=== PATIENT | female | born 1950 | race American Indian/Alaskan Native ===

== ENCOUNTER 2017-04-03 07:30 | Outpatient (CLI) | payer MEDICARE ==
--- NOTE | 2017-04-03 08:15 | Mammography Report ---
Bilateral mammogram: Compared to 02/22/16 and 10/20/16. CAD utilized. Findings: Predominance of adipose tissue bilaterally. No distinct mass or microcalcification. Benign density left breast without interval change. Benign calcifications. Benign axillary nodes. Impression: Benign findings. Annual followup recommended. BI-RADS CATEGORY: 2 = Benign ACR BI-RADS MAMMOGRAPHIC CODES: 0 = Needs additional imaging evaluation; 1 = Negative; 2 = Benign; 3 = Probably benign; 4 = Suspicious; 5 = Malignant; 6 = Known biopsy-proven malignancy COMMENT: 1. Dense breast tissue, i.e., adenosis, fibrocystic changes, etc., may obscure an underlying neoplasm. 2. Approximately 10% of cancers are not detected with mammography. 3. A negative mammography report should not delay biopsy if a clinically suspicious mass is present. COMMENT: Patient follow-up letters are generated in [employer].
== END 2017-04-03 07:31 | disposition home or self-care (01) ==
LOC: MAMMO 07:30
PROVIDERS: ATTEND Obstetrics & Gynecology Gynecology
DX: Z12.31 Encounter for screening mammogram for malignant neoplasm of breast (principal)
CPT/HCPCS: 77067; G0202

== ENCOUNTER 2018-01-07 12:42 | Emergency (ER) | payer MEDICARE ==
[2018-01-07] MEDS ORDERED: NACL 0.9% 1000 ML 1,000 ML IV ONE ×2 (13:06→15:20)
[2018-01-07] MEDS ORDERED: ZOFRAN IV ONE (13:06)
--- NOTE | 2018-01-07 13:11 | Emergency Department Report ---
ED Abdominal Pain HPI - General Chief Complaint: Dizziness Stated Complaint: DIZZY Time Seen by Provider: 01/07/18 13:00 Source: patient Mode of arrival: Ambulatory Limitations: No Limitations - History of Present Illness Initial Comments: Patient is 67 his old female history of hypertension and diabetes. Patient stated that she recently flew from [place] to [place]. She stated that she started having nausea vomiting and watery diarrhea associated with this dizziness and diaphoresis. Patient stated that she did have murmur in the airport and she thinks this is most likely the reason for her symptoms. She also stated that she is having runny nose but no cough. Patient denied any fever, neck pain or neck stiffness. In triage patient found to have a blood pressure of 90/66. MD Complaint: abdominal pain -: Gradual Location: diffuse Radiation: none Migration to: no migration Severity: mild Severity scale (0 -10): 3 Quality: cramping Context: possible food poisoning Associated Symptoms: nausea, vomiting, diarrhea - Related Data Previous Rx's Medication Instructions Recorded Last Taken Type Ondansetron [Zofran Odt] 4 mg PO Q8HR PRN #14 tab.rapdis 01/07/18 Unknown Rx Allergies Allergy/AdvReac Type Severity Reaction Status Date / Time No Known Allergies Allergy Unverified 02/01/15 10:00 ED Review of Systems ROS: Stated complaint: DIZZY Other details as noted in HPI Comment: All other systems reviewed and negative Constitutional: denies: chills, fever Respiratory: denies: cough, orthopnea, shortness of breath, SOB with exertion, SOB at rest, stridor, wheezing Cardiovascular: denies: chest pain, palpitations, dyspnea on exertion Gastrointestinal: abdominal pain, nausea, vomiting, diarrhea Neurological: denies: headache, weakness, numbness, paresthesias, confusion, abnormal gait ED Past Medical Hx - Past Medical History Previous Medical History?: Yes Hx Hypertension: Yes Hx Diabetes: Yes Additional medical history: high cholesterol - Surgical History Past Surgical History?: Yes Additional Surgical History: Gastric bypass 2004, [place] Carpel tunnel surgery , Left knee arthroscopy, Hysterectomy - Social History Smoking Status: Never Smoker Substance Use Type: Alcohol, Prescribed - Medications Home Medications: Home Medications Medication Instructions Recorded Confirmed Last Taken Type Ondansetron [Zofran Odt] 4 mg PO Q8HR PRN #14 tab.rapdis 01/07/18 Unknown Rx ED Physical Exam - General Limitations: No Limitations General appearance: alert, in no apparent distress - Head Head exam: Present: atraumatic, normocephalic, normal inspection - Eye Eye exam: Present: normal appearance - ENT ENT exam: Present: normal exam, normal orophraynx, mucous membranes moist - Neck Neck exam: Present: normal inspection, full ROM. Absent: tenderness, meningismus, lymphadenopathy, thyromegaly - Respiratory Respiratory exam: Present: normal lung sounds bilaterally. Absent: respiratory distress, wheezes, rales, rhonchi, stridor, chest wall tenderness, accessory muscle use, decreased breath sounds, prolonged expiratory - Cardiovascular Cardiovascular Exam: Present: regular rate, normal rhythm, normal heart sounds - GI/Abdominal GI/Abdominal exam: Present: soft, normal bowel sounds. Absent: distended, tenderness, guarding, rebound, rigid, organomegaly, mass, bruit, pulsatile mass - Extremities Exam Extremities exam: Present: normal inspection, full ROM, normal capillary refill. Absent: tenderness, pedal edema, joint swelling, calf tenderness - Back Exam Back exam: Present: normal inspection, full ROM. Absent: tenderness, CVA tenderness (R), CVA tenderness (L), muscle spasm, paraspinal tenderness, vertebral tenderness - Neurological Exam Neurological exam: Present: alert, oriented X3, CN II-XII intact, normal gait - Skin Skin exam: Present: warm, intact, normal color ED Course Vital Signs 01/07/18 12:51 Temperature 97 F L Pulse Rate 98 H Respiratory 20 Rate Blood Pressure 91/60 O2 Sat by Pulse 99 Oximetry ED Medical Decision Making - Lab Data Result diagrams: 01/07/18 13:20 01/07/18 13:21 - Radiology Data Radiology results: report reviewed Referring Physician: BARBARA MOON Patient Name: BRENNA WATTS Date of : 1950 Sex: Female Report Date: 2018-01-07 Report Status: Finalized Findings [facility] [address] [place] [address] Cat Scan Report Signed Patient: BRENNA WATTS MR#: [id number] : 1950 Acct:[id number] Age/Sex: 67 / F ADM Date: 01/07/18 Loc: ED Attending Dr: Ordering Physician: BARBARA MOON Date of Service: 01/07/18 Procedure(s): CT head/brain wo con Accession Number(s): [id number] cc: BARBARA MOON FINAL REPORT EXAM: CT HEAD/BRAIN WO CON HISTORY: dizziness TECHNIQUE: CT of the head was performed. No intravenous contrast was administered. PRIORS: None. FINDINGS: There is no evidence of intracranial hemorrhage. There is no edema, mass effect or midline shift. There are no abnormal extra-axial fluid collections. The ventricles are appropriate for brain volume. There is no skull fracture seen. The visualized aspects of the sinuses are clear. IMPRESSION: There is no acute intracranial abnormality identified. Transcribed By: KM Dictated By: AMRITA OLSEN MD Electronically Authenticated By: AMRITA OLSEN MD Signed Date/Time: 01/07/18 1505 DD/ 1505 TD/TT: 01/07/18 1505 Critical care attestation.: If time is entered above; I have spent that time in minutes in the direct care of this critically ill patient, excluding procedure time. ED Disposition Clinical Impression: Dizziness, Dehydration, Gastroenteritis Disposition: DC-01 TO HOME OR SELFCARE Is pt being admited?: No Condition: Stable Instructions: Gastroenteritis (ED), Dizziness (ED) Prescriptions: Ondansetron [Zofran Odt] 4 mg PO Q8HR PRN #14 tab.rapdis PRN Reason: Nausea And Vomiting Referrals: MEJIA VERNON MD [Primary Care Provider] - 3-5 Days
[2018-01-07 13:37] LABS: Basophils % (Auto) 0.4 % (0.0-1.8); Eosinophils # (Auto) 0.2 K/mm3 (0.0-0.4); Eosinophils % (Auto) 3.1 % (0.0-4.3); Hematocrit 43.3 % (30.3-42.9); Hemoglobin 15.1 gm/dl (10.1-14.3); Lymphocytes # (Auto) 0.5 K/mm3 (1.2-5.4); Mean Corpuscular HGB Conc 35 % (30-34); Mean Corpuscular Hemoglobin 32 pg (28-32); Mean Corpuscular Volume 93 fl (79-97); Monocytes # (Auto) 0.3 K/mm3 (0.0-0.8); Monocytes % (Auto) 5.1 % (0.0-7.3); Platelet Count 187 K/mm3 (140-440); Red Blood Count 4.64 M/mm3 (3.65-5.03)
[2018-01-07 13:56] LABS: Alanine Aminotransferase 21 units/L (7-56); Albumin 3.9 g/dL (3.9-5); BUN/Creatinine Ratio 18; Blood Urea Nitrogen 16 mg/dL (7-17); Calcium 8.7 mg/dL (8.4-10.2); Hemolysis Index 7
--- NOTE | 2018-01-07 15:10 | Cat Scan Report ---
FINAL REPORT EXAM: CT HEAD/BRAIN WO CON HISTORY: dizziness TECHNIQUE: CT of the head was performed. No intravenous contrast was administered. PRIORS: None. FINDINGS: There is no evidence of intracranial hemorrhage. There is no edema, mass effect or midline shift. There are no abnormal extra-axial fluid collections. The ventricles are appropriate for brain volume. There is no skull fracture seen. The visualized aspects of the sinuses are clear. IMPRESSION: There is no acute intracranial abnormality identified.
[2018-01-07 16:17] VITALS: BP 118/68
== END 2018-01-07 16:22 | disposition home or self-care (01) ==
LOC: ED 12:42
DX: E86.0 Dehydration (principal); K52.9 Noninfective gastroenteritis and colitis, unspecified; I10 Essential (primary) hypertension; E11.9 Type 2 diabetes mellitus without complications; E78.00 Pure hypercholesterolemia, unspecified; Z90.710 Acquired absence of both cervix and uterus
CPT/HCPCS: 36415; 70450; 80053; 84484; 85025; 93005; 93010; 96361; 96374; 99284; J2405; J7030

== ENCOUNTER 2020-09-06 15:07 | Emergency (ER) | payer MEDICARE ==
--- NOTE | 2020-09-06 15:18 | Event Note ---
ED Screening Note Date of service: 09/06/20 Time: 15:17 ED Screening Note: Pt complains of weakness, left flank pain, and body aches x 4 days hx of DM and HTN Denies cough, SOB, or CP No N/V/D This initial assessment/diagnostic orders/clinical plan/treatment(s) is/are subject to change based on patients health status, clinical progression and re- assessment by fellow clinical providers in the ED. Further treatment and workup at subsequent clinical providers discretion. Patient/guardian urged not to elope from the ED as their condition may be serious if not clinically assessed and managed. Initial orders include: labs CXR
--- NOTE | 2020-09-06 15:47 | XRay Report ---
CHEST 2 VIEWS INDICATION / CLINICAL INFORMATION: left posterior chest pain. COMPARISON: January 2012 FINDINGS: SUPPORT DEVICES: None. HEART / MEDIASTINUM: No significant abnormality. LUNGS / PLEURA: No significant pulmonary or pleural abnormality. No pneumothorax. ADDITIONAL FINDINGS: No significant additional findings. IMPRESSION: 1. No acute findings. Signer Name: Max Shearer MD Signed: 09/06/2020 3:43 PM Workstation Name: [id number]
[2020-09-06 16:41] LABS: Basophils % (Auto) 0.3 % (0.0-1.8); Eosinophils % (Auto) 0.3 % (0.0-4.3); Hematocrit 41.2 % (30.3-42.9); Hemoglobin 13.7 gm/dl (10.1-14.3); Lymphocytes # (Auto) 0.9 K/mm3 (1.2-5.4); Lymphocytes % (Auto) 25.6 % (13.4-35.0); Mean Corpuscular HGB Conc 33 % (30-34); Mean Corpuscular Volume 94 fl (79-97); Monocytes # (Auto) 0.3 K/mm3 (0.0-0.8); Monocytes % (Auto) 8.3 % (0.0-7.3); Platelet Count 153 K/mm3 (140-440); Red Blood Count 4.39 M/mm3 (3.65-5.03); Red Cell Distribution Width 14.7 % (13.2-15.2)
[2020-09-06 17:03] LABS: Alanine Aminotransferase 12 units/L (7-56); Albumin 3.9 g/dL (3.9-5); BUN/Creatinine Ratio 13; Blood Urea Nitrogen 10 mg/dL (7-17); Calcium 8.5 mg/dL (8.4-10.2); Hemolysis Index 11
[2020-09-06] MEDS ORDERED: ACETAMINOPHEN 500 MG TAB PO ONE ×2 (17:14→20:00)
[2020-09-06] MEDS ORDERED: ONDANSETRON 4 MG/2 ML INJ IV ONE (17:14)
[2020-09-06] MEDS ORDERED: SODIUM CHLORIDE 0.9% 1000 ML 1,000 ML IV ONE (17:14)
--- NOTE | 2020-09-06 17:17 | Emergency Department Report ---
ED General Adult HPI - General Chief complaint: Weakness Stated complaint: WEAK PUI?: Yes Time Seen by Provider: 09/06/20 15:17 Source: patient Mode of arrival: Ambulatory Limitations: No Limitations - History of Present Illness Initial comments: Chief complaint: Weakness fatigue poor appetite HPI this is a 70-year-old female with history of diabetes mellitus, hypertension, hypercholesterolemia who presents with fatigue cough headache body aches poor appetite dizziness since Sunday. Patient stated that she felt warm. She took Tylenol which relieved the headache and subjective temperature. Headache was mild left temporal in location. Headache has not returned since Sunday. Headache gradual onset. Now she has dry cough. When she stands for long periods of time, she feels that she is going to pass out. She was exposed to patient infected with COVID-19 on August 24. Her cousin visited the family home. Several days thereafter he was notified that he was COVID-19 positive. She has 2 daughters in a home who works in warehouse settings. Her granddaughter security system analyst here at this hospital. She has several grandchildren at home. She has shocked at retail centers recently including [employer] on . She denies shortness of breath. She denies abdominal pain. She denies vomiting. She did have 1 bout of loose stool mild diarrhea recently. She denies dysuria or frequent urination. PCP Dr. Mejia Candelario She denies loss of taste or smell. -: Gradual, days(s) (3) Location: head Consistency: constant Improves with: none Worsens with: none Associated Symptoms: cough, headaches, loss of appetite, malaise, other (Diarrhea) - Related Data Previous Rx's Medication Instructions Recorded Last Taken Type Ondansetron [Zofran Odt] 4 mg PO Q8HR PRN #14 tab.rapdis 01/07/18 Unknown Rx Allergies Allergy/AdvReac Type Severity Reaction Status Date / Time No Known Allergies Allergy Unverified 02/01/15 10:00 ED Review of Systems ROS: Stated complaint: WEAK Other details as noted in HPI Comment: All other systems reviewed and negative Constitutional: malaise, weakness, other (Subjective fever, body aches) ENT: denies: throat pain Respiratory: cough. denies: shortness of breath Cardiovascular: denies: chest pain Gastrointestinal: diarrhea. denies: abdominal pain, nausea, vomiting Genitourinary: denies: urgency, dysuria, frequency Neurological: headache ED Past Medical Hx - Past Medical History Previous Medical History?: Yes Hx Hypertension: Yes Hx Diabetes: Yes Additional medical history: high cholesterol - Surgical History Additional Surgical History: Gastric bypass 2004, [place] Carpel tunnel surgery , Left knee arthroscopy, Hysterectomy - Social History Smoking Status: Never Smoker Substance Use Type: None - Medications Home Medications: Home Medications Medication Instructions Recorded Confirmed Last Taken Type Ondansetron [Zofran Odt] 4 mg PO Q8HR PRN #14 tab.rapdis 01/07/18 Unknown Rx ED Physical Exam - General Limitations: No Limitations General appearance: alert, in no apparent distress, other (Nontoxic but appears mildly ill, looks younger than stated age) - Head Head exam: Present: atraumatic, normocephalic - Eye Eye exam: Present: normal appearance - ENT ENT exam: Present: mucous membranes moist - Neck Neck exam: Present: normal inspection, full ROM - Respiratory Respiratory exam: Present: normal lung sounds bilaterally. Absent: respiratory distress, wheezes, rales, stridor - Cardiovascular Cardiovascular Exam: Present: regular rate, normal rhythm, normal heart sounds. Absent: systolic murmur, diastolic murmur, rubs, gallop - GI/Abdominal GI/Abdominal exam: Present: soft, normal bowel sounds. Absent: distended, te nderness, guarding, rebound - Extremities Exam Extremities exam: Present: normal inspection - Neurological Exam Neurological exam: Present: alert, oriented X3 - Psychiatric Psychiatric exam: Present: normal affect, normal mood - Skin Skin exam: Present: warm, dry, intact, normal color. Absent: rash ED Course Vital Signs 09/06/20 09/06/20 09/06/20 15:14 20:14 20:19 Temperature 97.5 F L 98.8 F Pulse Rate 104 H 85 Respiratory 18 Rate Blood Pressure 135/80 Blood Pressure 164/92 [Left] O2 Sat by Pulse 98 100 100 Oximetry ED Medical Decision Making - Lab Data Result diagrams: 09/06/20 16:17 09/06/20 16:17 Laboratory Results - last 24 hr 09/06/20 09/06/20 09/06/20 15:19 16:17 16:17 WBC 3.4 L RBC 4.39 Hgb 13.7 Hct 41.2 MCV 94 MCH 31 MCHC 33 RDW 14.7 Plt Count 153 Lymph % (Auto) 25.6 [place] % (Auto) 8.3 H Eos % (Auto) 0.3 Baso % (Auto) 0.3 Lymph # (Auto) 0.9 L [place] # (Auto) 0.3 Eos # (Auto) 0.0 Baso # (Auto) 0.0 Seg Neutrophils % 65.5 Seg Neutrophils # 2.2 Sodium 138 Potassium 4.2 Chloride 102.8 Carbon Dioxide 23 Anion Gap 16 BUN 10 Creatinine 0.8 Estimated GFR > 60 BUN/Creatinine Ratio 13 Glucose 110 H POC Glucose 94 Calcium 8.5 Total Bilirubin 0.70 AST 23 ALT 12 Alkaline Phosphatase 92 Troponin T < 0.010 Total Protein 6.5 Albumin 3.9 Albumin/Globulin Ratio 1.5 - Radiology Data Radiology results: report reviewed, image reviewed CHEST 2 VIEWS INDICATION / CLINICAL INFORMATION: left posterior chest pain. COMPARISON: January 2012 FINDINGS: SUPPORT DEVICES: None. HEART / MEDIASTINUM: No significant abnormality. LUNGS / PLEURA: No significant pulmonary or pleural abnormality. No pneumothorax. ADDITIONAL FINDINGS: No significant additional findings. IMPRESSION: 1. No acute findings. - Medical Decision Making Ms. mosqueda a 70-year-old female presents with dizziness fatigue headache subjective fever cough. I did witness frequent cough in the emergency assessing patient. Patient received supportive care in emergency department with IV fluid therapy. Differential diagnosis: COVID-19 infection, dehydration, Urinalysis without evidence of infection. CBC chemistry unremarkable chest radiographs without pneumonia. Patient given return precautions. She will arrange outpatient COVID-19 testing through her PCP. Vital Signs - 24 hr 09/06/20 09/06/20 09/06/20 15:14 20:14 20:19 Temperature 97.5 F L 98.8 F Pulse Rate 104 H 85 Respiratory 18 Rate Blood Pressure 135/80 Blood Pressure 164/92 [Left] O2 Sat by Pulse 98 100 100 Oximetry Critical care attestation.: If time is entered above; I have spent that time in minutes in the direct care of this critically ill patient, excluding procedure time. ED Disposition Clinical Impression: Suspected COVID-19 virus infection, Dehydration Disposition: DC- TO HOME OR SELFCARE Is pt being admited?: No Does the pt Need Aspirin: No Condition: Stable Additional Instructions: Please return to the ER if your symptoms worsen. Please return if you develop chest pain shortness of breath or fainting episodes. Please have your doctor arrange COVID-19 testing. Referrals: MEJIA CANDELARIO MD [Primary Care Provider] - [facility]
[2020-09-06] MEDS ORDERED: ONDANSETRON 4 MG/2 ML INJ ONE (19:32)
[2020-09-06 20:20] VITALS: BP 164/92
[2020-09-06 21:39] LABS: Bilirubin,Urine NEG (Negative); Blood,Urine NEG (Negative); Color,Urine Yellow (Yellow); Mucus,Urine FEW /HPF; Protein,Urine <15 mg/dL mg/dL (Negative); Urobilinogen,Urine < 2.0 mg/dL (<2.0)
== END 2020-09-06 22:13 | disposition home or self-care (01) ==
LOC: ED 15:07
DX: E86.0 Dehydration (principal); Z20.828 Contact with and (suspected) exposure to other viral communicable diseases; I10 Essential (primary) hypertension; E11.9 Type 2 diabetes mellitus without complications; Z98.890 Other specified postprocedural states; Z79.899 Other long term (current) drug therapy
CPT/HCPCS: 36415; 71046; 80053; 81001; 82962; 84484; 85025; 96361; 96374; 99284; J2405; J7030

== ENCOUNTER 2022-03-03 20:16 | Inpatient (IN) | payer MEDICARE ==
[2022-03-03] MEDS ORDERED: ASPIRIN 325 MG TAB PO ONE (20:31)
--- NOTE | 2022-03-03 21:13 | XRay Report ---
CHEST 2 VIEWS INDICATION / CLINICAL INFORMATION: CHEST PAIN X 2 HOURS; HTN, DIZZY. COMPARISON: 09/06/2020 FINDINGS: SUPPORT DEVICES: None. HEART / MEDIASTINUM: No significant abnormality. LUNGS / PLEURA: No significant pulmonary or pleural abnormality. No pneumothorax. ADDITIONAL FINDINGS: No significant additional findings. IMPRESSION: 1. No acute findings. Signer Name: Otoniel Davis DO Signed: 03/03/2022 9:09 PM Workstation Name: [id number]
[2022-03-03 22:04] LABS: Basophils % (Auto) 0.8 % (0.0-1.8); Eosinophils # (Auto) 0.3 K/mm3 (0.0-0.4); Eosinophils % (Auto) 4.5 % (0.0-4.3); Hematocrit 36.7 % (30.3-42.9); Hemoglobin 12.6 gm/dl (10.1-14.3); Lymphocytes # (Auto) 2.9 K/mm3 (1.2-5.4); Lymphocytes % (Auto) 51.1 % (13.4-35.0); Mean Corpuscular HGB Conc 34 % (30-34); Mean Corpuscular Volume 93 fl (79-97); Monocytes # (Auto) 0.4 K/mm3 (0.0-0.8); Monocytes % (Auto) 7.4 % (0.0-7.3); Platelet Count 190 K/mm3 (140-440); Red Blood Count 3.95 M/mm3 (3.65-5.03); Red Cell Distribution Width 14.9 % (13.2-15.2)
[2022-03-03 22:26] LABS: Alanine Aminotransferase 13 units/L (7-56); Albumin 4.2 g/dL (3.9-5); BUN/Creatinine Ratio 14; Blood Urea Nitrogen 13 mg/dL (7-17); Calcium 9.2 mg/dL (8.4-10.2); Hemolysis Index 11
[2022-03-03] MEDS ORDERED: NITROGLYCERIN 2% OINT 1 GM TP ONE (22:59)
[2022-03-03] MEDS ORDERED: cloNIDine 0.2 MG TAB PO ONE (22:59)
--- NOTE | 2022-03-03 23:12 | Emergency Department Report ---
HPI - General Chief Complaint: Chest Pain Time Seen by Provider: 03/03/22 22:58 - HPI HPI: Room 1 Patient is a 72-year-old female present with a chief complaint of chest pain. Patient states she was at rest this evening at 1700 when she developed dizziness and substernal chest pain described as constant stabbing pain. Patient admits to nausea but denies vomiting, shortness of breath or diaphoresis with the pain. The patient states her last cardiac catheterization occurred in 2011 when she was told she had a "65% blockage." The patient states she found herself hypertensive with a BP of 181/112. Patient states she was taken off lisinopril and started on losartan approximately 2 weeks ago ED Past Medical Hx - Past Medical History Hx Hypertension: Yes Hx Diabetes: Yes Additional medical history: high cholesterol - Surgical History Additional Surgical History: Gastric bypass 2004, [place] Carpel tunnel surgery , Left knee arthroscopy, myomectomy, bilateral tubal ligation - Family History Family history: no significant - Social History Smoking Status: Never Smoker Substance Use Type: None (Denies illicit drug use), Alcohol (Occasional) - Medications Home Medications: Home Medications Medication Instructions Recorded Confirmed Last Taken Type Ondansetron [Zofran Odt] 4 mg PO Q8HR PRN #14 tab.rapdis 01/07/18 Unknown Rx ED Review of Systems ROS: Stated complaint: CHEST PAIN Other details as noted in HPI Constitutional: denies: diaphoresis Eyes: denies: eye pain ENT: denies: throat pain Respiratory: denies: shortness of breath Cardiovascular: chest pain Endocrine: no symptoms reported Gastrointestinal: nausea. denies: vomiting Genitourinary: denies: dysuria Musculoskeletal: denies: back pain Neurological: denies: headache Physical Exam - Physical Exam Vital Signs: Vital Signs 03/03/22 20:19 Temperature 97.9 F Pulse Rate 81 Respiratory 18 Rate Blood Pressure 186/116 O2 Sat by Pulse 98 Oximetry Physical Exam: GENERAL: The patient is well-developed well-nourished female lying on stretcher not appearing to be in acute distress. [] HEENT: Normocephalic. Atraumatic. Extraocular motions are intact. Patient has moist mucous membranes. NECK: Supple. Trachea midline CHEST/LUNGS: Clear to auscultation. There is no respiratory distress noted. HEART/CARDIOVASCULAR: Regular. There is no tachycardia. There is no gallop rub or murmur. ABDOMEN: Abdomen is soft, nontender. Patient has normal bowel sounds. There is no abdominal distention. SKIN: There is no rash. There is no edema. There is no diaphoresis. NEURO: The patient is awake, alert, and oriented. The patient is cooperative. The patient has no focal neurologic deficits. The patient has normal speech. GCS 15 MUSCULOSKELETAL: There is no evidence of acute injury. ED Course Vital Signs 03/03/22 20:19 Temperature 97.9 F Pulse Rate 81 Respiratory 18 Rate Blood Pressure 186/116 O2 Sat by Pulse 98 Oximetry ED Medical Decision Making - Lab Data Result diagrams: 03/03/22 21:32 03/03/22 21:32 Laboratory Tests 03/03/22 03/03/22 21:32 21:32 WBC 5.7 RBC 3.95 Hgb 12.6 Hct 36.7 MCV 93 MCH 32 MCHC 34 RDW 14.9 Plt Count 190 Lymph % (Auto) 51.1 H [place] % (Auto) 7.4 H Eos % (Auto) 4.5 H Baso % (Auto) 0.8 Lymph # (Auto) 2.9 [place] # (Auto) 0.4 Eos # (Auto) 0.3 Baso # (Auto) 0.0 Seg Neutrophils % 36.2 L Seg Neutrophils # 2.1 Sodium 141 Potassium 4.4 Chloride 105.7 Carbon Dioxide 25 Anion Gap 15 BUN 13 Creatinine 0.9 Estimated GFR > 60 BUN/Creatinine Ratio 14 Glucose 105 H Calcium 9.2 Total Bilirubin 0.60 AST 16 ALT 13 Alkaline Phosphatase 96 Troponin T < 0.010 Total Protein 6.7 Albumin 4.2 Albumin/Globulin Ratio 1.7 - EKG Data -: EKG Interpreted by Me EKG shows normal: sinus rhythm Rate: normal - EKG Data When compared to previous EKG there are: no significant change Interpretation: other (No ischemic changes seen) - Radiology Data Radiology results: report reviewed (Chest x-ray), image reviewed (Chest x-ray) interpreted by me: Chest x-ray-no definite focal infiltrates, no pneumothorax [facility] [address] [place] [address] XRay Report Signed Patient: BRENNA WATTS MR#: [id number] : 1950 Acct:[id number] Age/Sex: 72 / F ADM Date: 03/03/22 Loc: ED Attending Dr: Ordering Physician: CODY YUSUF MD Date of Service: 03/03/22 Procedure(s): XR chest routine 2V Accession Number(s): [id number] cc: ED MD MADELIN Fluoro Time In Minutes: CHEST 2 VIEWS INDICATION / CLINICAL INFORMATION: CHEST PAIN X 2 HOURS; HTN, DIZZY. COMPARISON: 09/06/2020 FINDINGS: SUPPORT DEVICES: None. HEART / MEDIASTINUM: No significant abnormality. LUNGS / PLEURA: No significant pulmonary or pleural abnormality. No pneumo thorax. ADDITIONAL FINDINGS: No significant additional findings. IMPRESSION: 1. No acute findings. Signer Name: Otoniel Andrwes DO Signed: 03/03/2022 9:09 PM Workstation Name: [id number] Transcribed By: KARINA Dictated By: OTONIEL ANDREWS DO Electronically Authenticated By: OTONIEL ANDREWS DO Signed Date/Time: 03/03/222108 DD/ 07 - Differential Diagnosis ACS, pericarditis, GERD Critical care attestation.: If time is entered above; I have spent that time in minutes in the direct care of this critically ill patient, excluding procedure time. ED Disposition Clinical Impression: Chest pain Disposition: ADMITTED INPATIENT Is pt being admited?: Yes Does the pt Need Aspirin: Yes Condition: Fair Instructions: Nonspecific Chest Pain, Adult Time of Disposition: 23:13 (Care transferred to hospitalist (Dr. Holder)) Heart Score - HEART Score History: Moderately suspicious EKG: Non-specific Age: > 65 Risk factors: > 3 risk factors or hx of atherosclerotic disease Troponin: < normal limit HEART Score: 6 - EKG Read Time Time EKG Completed: 20:23 EKG Read Time: 20:32
[2022-03-04] MEDS ORDERED: ASPIRIN 325 MG TAB PO ONE (00:55)
[2022-03-04] MEDS ORDERED: NITROGLYCERIN 0.4 MG TAB SUBL SL PRN (01:50)
[2022-03-04] MEDS ORDERED: traMADol 50 MG TAB PO PRN (01:50)
[2022-03-04] MEDS ORDERED: MORPHINE 4 MG/1 ML INJ IV PRN (01:50)
[2022-03-04] MEDS ORDERED: DEXTROSE 50% IN WATER (25GM) 50 ML SYRINGE IV PRN (01:50)
[2022-03-04] MEDS ORDERED: ACETAMINOPHEN 325 MG TAB PO PRN (01:50)
--- NOTE | 2022-03-04 01:57 | History and Physical Report ---
History of Present Illness Date of examination: 03/04/22 Date of admission: 03/04/22 Chief complaint: Chest pain History of present illness: 72-year-old female with history of hypertension, diabetes, hyperlipidemia was brought to the emergency room because of chest pain. Patient states she was at rest this evening at 1700 when she developed dizziness and substernal chest pain described as constant stabbing pain. Patient admits to nausea but denies vomiting, shortness of breath or diaphoresis with the pain. The patient states her last cardiac catheterization occurred in 2011 when she was told she had a "65% blockage." The patient states she found herself hypertensive with a BP of 181/112. Patient states she was taken off lisinopril and started on losartan approximately 2 weeks ago In the emergency room initial cardiac enzyme is negative troponin is 0.010. We are going to admit the patient we will put the patient on chest pain pathway we also do a Lexiscan Past History Past Medical History: diabetes, hypertension, hyperlipidemia Past Surgical History: No surgical history Social history: no significant social history Family history: hypertension Medications and Allergies Allergies Allergy/AdvReac Type Severity Reaction Status Date / Time No Known Allergies Allergy Unverified 02/01/15 10:00 Home Medications Medication Instructions Recorded Confirmed Last Taken Type Ondansetron [Zofran Odt] 4 mg PO Q8HR PRN #14 tab.rapdis 01/07/18 Unknown Rx Review of Systems All systems: negative Cardiovascular: chest pain, shortness of breath, dyspnea on exertion Respiratory: shortness of breath, dyspnea on exertion Exam - Constitutional Vitals: Temp Pulse Resp BP Pulse Ox 97.9 F 86 20 169/99 99 03/03/22 20:19 03/04/22 00:45 03/04/22 01:28 03/04/22 00:45 03/04/22 01:28 General appearance: Present: no acute distress, well-nourished - EENT Eyes: Present: PERRL ENT: hearing intact, clear oral mucosa - Neck Neck: Present: supple, normal ROM - Respiratory Respiratory effort: normal Respiratory: bilateral: diminished - Cardiovascular Heart Sounds: Present: S1 & S2. Absent: rub, click - Extremities Extremities: pulses symmetrical, No edema Peripheral Pulses: within normal limits - Abdominal General gastrointestinal: Present: soft, non-tender, non-distended, normal bowel sounds Female genitourinary: Present: normal - Integumentary Integumentary: Present: clear, warm, dry - Musculoskeletal Musculoskeletal: gait normal, strength equal bilaterally - Psychiatric Psychiatric: appropriate mood/affect, intact judgment & insight - Neurologic Neurologic: CNII-XII intact, moves all extremities HEART Score - HEART Score EKG: Non-specific Age: > 65 Risk factors: > 3 risk factors or hx of atherosclerotic disease Troponin: Troponin T < 0.010 ng/mL (0.00-0.029) 03/03/22 23:54 Troponin: < normal limit Results - Labs CBC & Chem 7: 03/03/22 21:32 03/03/22 21:32 Labs: Laboratory Last Values WBC 5.7 K/mm3 (4.5-11.0) 03/03/22 21: RBC 3.95 M/mm3 (3.65-5.03) 03/03/22 21: Hgb 12.6 gm/dl (10.1-14.3) 03/03/22 21: Hct 36.7 % (30.3-42.9) 03/03/22 21: MCV 93 fl (79-97) 03/03/22 21: MCH 32 pg (28-32) 03/03/22 21: MCHC 34 % (30-34) 03/03/22 21: RDW 14.9 % (13.2-15.2) 03/03/22 21:32 Plt Count 190 K/mm3 (140-440) 03/03/22 21:32 Lymph % (Auto) 51.1 % (13.4-35.0) H 03/03/22 21: [place] % (Auto) 7.4 % (0.0-7.3) H 03/03/22 21:32 Eos % (Auto) 4.5 % (0.0-4.3) H 03/03/22 21:32 Baso % (Auto) 0.8 % (0.0-1.8) 03/03/22 21: Lymph # (Auto) 2.9 K/mm3 (1.2-5.4) 03/03/22 21: [place] # (Auto) 0.4 K/mm3 (0.0-0.8) 03/03/22 21:32 Eos # (Auto) 0.3 K/mm3 (0.0-0.4) 03/03/22 21:32 Baso # (Auto) 0.0 K/mm3 (0.0-0.1) 03/03/22 21:32 Seg Neutrophils % 36.2 % (40.0-70.0) L 03/03/22 21:32 Seg Neutrophils # 2.1 K/mm3 (1.8-7.7) 03/03/22 21:32 Sodium 141 mmol/L (137-145) 03/03/22 21:32 Potassium 4.4 mmol/L (3.6-5.0) 03/03/22 21:32 Chloride 105.7 mmol/L (98-107) 03/03/22 21:32 Carbon Dioxide 25 mmol/L (22-30) 03/03/22 21:32 Anion Gap 15 mmol/L 03/03/22 21:32 BUN 13 mg/dL (7-17) 03/03/22 21:32 Creatinine 0.9 mg/dL (0.6-1.2) 03/03/22 21:32 Estimated GFR > 60 ml/min 03/03/22 21:32 BUN/Creatinine Ratio 14 % 03/03/22 21:32 Glucose 105 mg/dL (65-100) H 03/03/22 21:32 Calcium 9.2 mg/dL (8.4-10.2) 03/03/22 21:32 Total Bilirubin 0.60 mg/dL (0.1-1.2) 03/03/22 21:32 AST 16 units/L (5-40) 03/03/22 21:32 ALT 13 units/L (7-56) 03/03/22 21:32 Alkaline Phosphatase 96 units/L (35-129) 03/03/22 21:32 Troponin T < 0.010 ng/mL (0.00-0.029) 03/03/22 23:54 Total Protein 6.7 g/dL (6.3-8.2) 03/03/22 21:32 Albumin 4.2 g/dL (3.9-5) 03/03/22 21:32 Albumin/Globulin Ratio 1.7 % 03/03/22 21:32 - Imaging and Cardiology Chest x-ray: report reviewed Assessment and Plan VTE prophylaxis?: Chemical Plan of care discussed with patient/family: Yes - Patient Problems (1) ACS (acute coronary syndrome) Current Visit: Yes Status: Acute Plan to address problem: Admit the patient to the medical telemetry. Aspirin 325 mg p.o. daily. Lipitor 40 mg p.o. daily. Nitroglycerin as needed. Serial cardiac enzymes. Lexiscan. Consult cardiology if needed (2) HTN (hypertension) Current Visit: Yes Status: Acute Plan to address problem: Hydralazine 10 mg IV every 6 hours as needed. We continue the home medication (3) Diabetes Current Visit: Yes Status: Acute Plan to address problem: Accu-Chek every 6 hours with Humalog moderate dose coverage. Diabetic education. Recheck BMP in the morning (4) Hyperlipidemia Current Visit: Yes Status: Acute Plan to address problem: Lipitor 40 mg p.o. daily. We will recheck the lipid panel in the morning (5) DVT prophylaxis Current Visit: Yes Status: Acute Plan to address problem: Heparin 5000 units subcu every 12 hours for DVT prophylaxis. Protonix 40 mg p.o. daily for GI prophylaxis. Patient is a full code
[2022-03-04] MEDS ORDERED: SODIUM CHLORIDE 0.9% 1000 ML 1,000 ML IV SCH (02:00)
[2022-03-04] MEDS: INSULIN LISPRO 100 UNIT/ML SUB-Q SCH ×2 (05:59→12:15)
[2022-03-04 06:30] LABS: Hematocrit 35.7 % (30.3-42.9); Hemoglobin 11.8 gm/dl (10.1-14.3); Mean Corpuscular HGB Conc 33 % (30-34); Mean Corpuscular Volume 93 fl (79-97); Platelet Count 186 K/mm3 (140-440); Red Blood Count 3.83 M/mm3 (3.65-5.03); Red Cell Distribution Width 14.6 % (13.2-15.2)
[2022-03-04 06:46] LABS: BUN/Creatinine Ratio 14; Blood Urea Nitrogen 11 mg/dL (7-17); Calcium 8.9 mg/dL (8.4-10.2); Hemolysis Index 5
[2022-03-04 08:00] LABS: Basophils % (Manual) 0 % (0.0-1.8); Platelet Estimate Consistent w Auto; RBC Morphology Normal; Total Cells Counted 100
[2022-03-04] MEDS: PANTOPRAZOLE 40 MG TAB PO SCH ×2 (08:51→10:00)
[2022-03-04] MEDS: HEPARIN 5,000 UNIT/1 ML VIAL SUB-Q SCH ×3 (08:51→21:25)
--- NOTE | 2022-03-04 09:39 | Progress Note ---
Assessment and Plan Assessment and plan: History of Present Illness: 72-year-old female with history of hypertension, diabetes, hyperlipidemia was brought to the emergency room because of chest pain. Patient states she was at rest this evening at 1700 when she developed dizziness and substernal chest pain described as constant stabbing pain. Patient admits to nausea but denies vomiting, shortness of breath or diaphoresis with the pain. The patient states her last cardiac catheterization occurred in 2011 when she was told she had a "65% blockage." The patient states she found herself hypertensive with a BP of 181/112. Patient states she was taken off lisinopril and started on losartan approximately 2 weeks ago In the emergency room initial cardiac enzyme is negative troponin is 0.010. We are going to admit the patient we will put the patient on chest pain pathway we also do a [facility] Course: 03/04: Awaiting completion of stress test. NPO midnight. Home medications restarted...list obtained from daughters. Assessment and Plan: # ACS (acute coronary syndrome) Current Visit: Yes Status: Acute Plan to address problem: Admit the patient to the medical telemetry. Aspirin 81 mg p.o. daily. Lipitor 20 mg p.o. daily. Imdur 30 mg p.o. daily, metoprolol 25 mg p.o. twice daily. Losartan 100 mg p.o. daily nitroglycerin as needed. Serial cardiac enzymes. Lexiscan. Consult cardiology if needed # hypertensive urgency Current Visit: Yes Status: Acute Plan to address problem: Hydralazine 10 mg IV every 6 hours as needed. We continue the home medication Metoprolol 25 mg p.o. twice daily, losartan 100 mg p.o. daily # Diabetes Current Visit: Yes Status: Acute Plan to address problem: Accu-Chek every 6 hours with Humalog moderate dose coverage. Diabetic education. Recheck BMP in the morning Hold home metformin # Hyperlipidemia Current Visit: Yes Status: Acute Plan to address problem: Lipitor 20 mg p.o. daily. We will recheck the lipid panel in the morning #Morbid Obesity - BMI 62.3 - Counseled patient on the importance of weight loss, incorporating exercise, and dietary changes (lean meats, fresh fruits and vegetables, and water intake). Patient expresses understanding. - Time: +15 min #Advance care planning Disease education conducted, care plan discussed, diagnoses discussed, prognosis discussed, patient is full code, patient acknowledges understanding and agree with care plan, discussed about patient clinical course and answered all questions to satisfaction. +30 minutes. +30 minutes. History Interval history: Patient seen and evaluated at bedside encounter. Daughters were present during encounter. Patient had no acute complaints. Not currently experiencing active chest pain. Hospitalist Physical - Physical exam Narrative exam: Physical Exam: VITAL SIGNS: Reviewed. GENERAL: The patient appears normally developed, Vital signs as documented. HEAD: No signs of head trauma. EYES: Pupils are equal. Extraocular motions intact. EARS: Hearing grossly intact. MOUTH: Oropharynx is normal. NECK: No adenopathy, no JVD. CHEST: Chest with clear breath sounds bilaterally. No wheezes, rales, or rhonchi. CARDIAC: Regular rate and rhythm. S1 and S2, without murmurs, gallops, or rubs. VASCULAR: No Edema. Peripheral pulses normal and equal in all extremities. ABDOMEN: Soft, non tender and non distended. No rebound or guarding, and no masses palpated. Bowel Sounds normal. MUSCULOSKELETAL: Good range of motion of all major joints. Extremities without clubbing, cyanosis or edema. NEUROLOGIC EXAM: Alert and oriented x 4. no focal sensory or strength deficits. PSYCHIATRIC: Mood normal. SKIN: detail exam as documented in skin assessment - Constitutional Vitals: Temp Pulse Resp BP Pulse Ox 97.6 F 56 L 19 140/78 98 03/04/22 08:36 03/04/22 08:36 03/04/22 08:36 03/04/22 08:36 03/04/22 03:30 General appearance: Present: no acute distress, well-nourished HEART Score - HEART Score EKG: Non-specific Age: > 65 Risk factors: > 3 risk factors or hx of atherosclerotic disease Troponin: Troponin T < 0.010 ng/mL (0.00-0.029) 03/04/22 05:57 Troponin: < normal limit Results - Labs CBC & Chem 7: 03/04/22 05:57 03/04/22 05:57 Labs: Laboratory Last Values WBC 4.3 K/mm3 (4.5-11.0) L 03/04/22 05:57 RBC 3.83 M/mm3 (3.65-5.03) 03/04/22 05:57 Hgb 11.8 gm/dl (10.1-14.3) 03/04/22 05:57 Hct 35.7 % (30.3-42.9) 03/04/22 05:57 MCV 93 fl (79-97) 03/04/22 05:57 MCH 31 pg (28-32) 03/04/22 05:57 MCHC 33 % (30-34) 03/04/22 05:57 RDW 14.6 % (13.2-15.2) 03/04/22 05:57 Plt Count 186 K/mm3 (140-440) 03/04/22 05:57 Lymph % (Auto) 51.1 % (13.4-35.0) H 03/03/22 21:32 [place] % (Auto) 7.4 % (0.0-7.3) H 03/03/22 21:32 Eos % (Auto) 4.5 % (0.0-4.3) H 03/03/22 21:32 Baso % (Auto) 0.8 % (0.0-1.8) 03/03/22 21:32 Lymph # (Auto) 2.9 K/mm3 (1.2-5.4) 03/03/22 21:32 [place] # (Auto) 0.4 K/mm3 (0.0-0.8) 03/03/22 21:32 Eos # (Auto) 0.3 K/mm3 (0.0-0.4) 03/03/22 21:32 Baso # (Auto) 0.0 K/mm3 (0.0-0.1) 03/03/22 21:32 Add Manual Diff Complete 03/04/22 05:57 Total Counted 100 03/04/22 05:57 Seg Neutrophils % Router Setter 03/04/22 05:57 Seg Neuts % (Manual) 41.0 % (40.0-70.0) 03/04/22 05:57 Band Neutrophils % 0 % 03/04/22 05:57 Lymphocytes % (Manual) 45.0 % (13.4-35.0) H 03/04/22 05:57 Reactive Lymphs % (Man) 0 % 03/04/22 05:57 Monocytes % (Manual) 10.0 % (0.0-7.3) H 03/04/22 05:57 Eosinophils % (Manual) 4.0 % (0.0-4.3) 03/04/22 05:57 Basophils % (Manual) 0 % (0.0-1.8) 03/04/22 05:57 Metamyelocytes % 0 % 03/04/22 05:57 Myelocytes % 0 % 03/04/22 05:57 Promyelocytes % 0 % 03/04/22 05:57 Blast Cells % 0 % 03/04/22 05:57 Nucleated RBC % Not Reportable 03/04/22 05:57 Seg Neutrophils # 2.1 K/mm3 (1.8-7.7) 03/03/22 21:32 Seg Neutrophils # Man 1.8 K/mm3 (1.8-7.7) 03/04/22 05:57 Band Neutrophils # 0.0 K/mm3 03/04/22 05:57 Lymphocytes # (Manual) 1.9 K/mm3 (1.2-5.4) 03/04/22 05:57 Abs React Lymphs (Man) 0.0 K/mm3 03/04/22 05:57 Monocytes # (Manual) 0.4 K/mm3 (0.0-0.8) 03/04/22 05:57 Eosinophils # (Manual) 0.2 K/mm3 (0.0-0.4) 03/04/22 05:57 Basophils # (Manual) 0.0 K/mm3 (0.0-0.1) 03/04/22 05:57 Metamyelocytes # 0.0 K/mm3 03/04/22 05:57 Myelocytes # 0.0 K/mm3 03/04/22 05:57 Promyelocytes # 0.0 K/mm3 03/04/22 05:57 Blast Cells # 0.0 K/mm3 03/04/22 05:57 WBC Morphology Not Reportable 03/04/22 05:57 Hypersegmented Neuts Not Reportable 03/04/22 05:57 Hyposegmented Neuts Not Reportable 03/04/22 05:57 Hypogranular Neuts Not Reportable 03/04/22 05:57 Smudge Cells Not Reportable 03/04/22 05:57 Toxic Granulation Not Reportable 03/04/22 05:57 Toxic Vacuolation Not Reportable 03/04/22 05:57 Dohle Bodies Not Reportable 03/04/22 05:57 Pelger-Huet Anomaly Not Reportable 03/04/22 05:57 Jose E Rods Not Reportable 03/04/22 05:57 Platelet Estimate Consistent w auto 03/04/22 05:57 Clumped Platelets Not Reportable 03/04/22 05:57 Plt Clumps, EDTA Not Reportable 03/04/22 05:57 Large Platelets Not Reportable 03/04/22 05:57 Giant Platelets Not Reportable 03/04/22 05:57 Platelet Satelliting Not Reportable 03/04/22 05:57 Plt Morphology Comment Not Reportable 03/04/22 05:57 RBC Morphology Normal 03/04/22 05:57 Dimorphic RBCs Not Reportable 03/04/22 05:57 Polychromasia Not Reportable 03/04/22 05:57 Hypochromasia Not Reportable 03/04/22 05:57 Poikilocytosis Not Reportable 03/04/22 05:57 Anisocytosis Not Reportable 03/04/22 05:57 Microcytosis Not Reportable 03/04/22 05:57 Macrocytosis Not Reportable 03/04/22 05:57 Spherocytes Not Reportable 03/04/22 05:57 Pappenheimer Bodies Not Reportable 03/04/22 05:57 Sickle Cells Not Reportable 03/04/22 05:57 Target Cells Not Reportable 03/04/22 05:57 Tear Drop Cells Not Reportable 03/04/22 05:57 Ovalocytes Not Reportable 03/04/22 05:57 Helmet Cells Not Reportable 03/04/22 05:57 Stoll-[place] Bodies Not Reportable 03/04/22 05:57 Holley Rings Not Reportable 03/04/22 05:57 Cristopher Cells Not Reportable 03/04/22 05:57 Bite Cells Not Reportable 03/04/22 05:57 Crenated Cell Not Reportable 03/04/22 05:57 Elliptocytes Not Reportable 03/04/22 05:57 Acanthocytes (Spur) Not Reportable 03/04/22 05:57 Rouleaux Not Reportable 03/04/22 05:57 Hemoglobin C Crystals Not Reportable 03/04/22 05:57 Schistocytes Not Reportable 03/04/22 05:57 Malaria parasites Not Reportable 03/04/22 05:57 Dougie Bodies Not Reportable 03/04/22 05:57 Hem Pathologist Commnt No 03/04/22 05:57 Sodium 139 mmol/L (137-145) 03/04/22 05:57 Potassium 4.2 mmol/L (3.6-5.0) 03/04/22 05:57 Chloride 105.9 mmol/L (98-107) 03/04/22 05:57 Carbon Dioxide 26 mmol/L (22-30) 03/04/22 05:57 Anion Gap 11 mmol/L 03/04/22 05:57 BUN 11 mg/dL (7-17) 03/04/22 05:57 Creatinine 0.8 mg/dL (0.6-1.2) 03/04/22 05:57 Estimated GFR > 60 ml/min 03/04/22 05:57 BUN/Creatinine Ratio 14 % 03/04/22 05:57 Glucose 106 mg/dL (65-100) H 03/04/22 05:57 Calcium 8.9 mg/dL (8.4-10.2) 03/04/22 05:57 Total Bilirubin 0.60 mg/dL (0.1-1.2) 03/03/22 21:32 AST 16 units/L (5-40) 03/03/22 21:32 ALT 13 units/L (7-56) 03/03/22 21:32 Alkaline Phosphatase 96 units/L (35-129) 03/03/22 21:32 Troponin T < 0.010 ng/mL (0.00-0.029) 03/04/22 05:57 Total Protein 6.7 g/dL (6.3-8.2) 03/03/22 21:32 Albumin 4.2 g/dL (3.9-5) 03/03/22 21:32 Albumin/Globulin Ratio 1.7 % 03/03/22 21:32 Active Medications - Current Medications Current Medications: Generic Name Dose Route Start Last Admin Trade Name Freq PRN Reason Stop Dose Admin Acetaminophen 650 mg 03/04/22 01:50 Acetaminophen 325 Mg Tab PO Q6H PRN Pain, Mild (1-3) Aspirin 325 mg 03/05/22 10:00 Aspirin Ec 325 Mg Tab PO QDAY DONAVON Atorvastatin Calcium 40 mg 03/04/22 22:00 Atorvastatin 40 Mg Tab PO QHS DONAVON Dextrose 50 ml 03/04/22 01:50 Dextrose 50% In Water (25gm) 50 Ml Syringe IV Q30MIN PRN Hypoglycemia Protocol Heparin Sodium (Porcine) 5,000 unit 03/04/22 10:00 03/04/22 08:51 Heparin 5,000 Unit/1 Ml Vial SUB-Q 5,000 unit Q12HR DONAVON Administration Sodium Chloride 1,000 mls @ 100 mls/hr 03/04/22 02:00 Nacl 0.9% 1000 Ml IV DIRECT [facility] Insulin Human Lispro 0 unit 03/04/22 06:00 03/04/22 05:59 Insulin Lispro 100 Unit/Ml SUB-Q Not Given Q6HR [facility] Protocol Morphine Sulfate 2 mg 03/04/22 01:50 Morphine 4 Mg/1 Ml Inj IV Q5MIN PRN Chest Pain unrelieved by NTG Nitroglycerin 0.4 mg 03/04/22 01:50 Nitroglycerin 0.4 Mg Tab Subl SL Q5M PRN Chest Pain Pantoprazole Sodium 40 mg 03/04/22 10:00 03/04/22 08:51 Pantoprazole 40 Mg Tab PO 40 mg QDAY DONAVON Administration Sodium Chloride 10 ml 03/04/22 01:50 Sodium Chloride 0.9% 10 Ml Flush Syringe IV PRN PRN LINE FLUSH Tramadol HCl 50 mg 03/04/22 01:50 Tramadol 50 Mg Tab PO Q6H PRN Pain, Moderate (4-6)
[2022-03-04] MEDS ORDERED: LISINOPRIL 20 MG TAB PO SCH (10:00)
[2022-03-04] MEDS: MONTELUKAST 10 MG TAB PO SCH (23:28)
[2022-03-04] MEDS: METOPROLOL TARTRATE 25 MG TAB PO SCH (23:31)
[2022-03-05] MEDS: INSULIN LISPRO 100 UNIT/ML SUB-Q SCH ×3 (00:34→23:03)
[2022-03-05] MEDS: METOPROLOL TARTRATE 25 MG TAB PO SCH ×2 (09:17→23:03)
[2022-03-05] MEDS: LOSARTAN 50 MG TAB PO SCH (09:17)
[2022-03-05] MEDS: ASPIRIN EC 81 MG TAB PO SCH (09:17)
[2022-03-05] MEDS: PANTOPRAZOLE 40 MG TAB PO SCH (09:17)
[2022-03-05] MEDS: HEPARIN 5,000 UNIT/1 ML VIAL SUB-Q SCH ×2 (09:18→23:04)
[2022-03-05] MEDS: ESTRADIOL 1 MG TAB PO SCH (09:39)
--- NOTE | 2022-03-05 09:53 | Progress Note ---
Assessment and Plan Assessment and plan: History of Present Illness: 72-year-old female with history of hypertension, diabetes, hyperlipidemia was brought to the emergency room because of chest pain. Patient states she was at rest this evening at 1700 when she developed dizziness and substernal chest pain described as constant stabbing pain. Patient admits to nausea but denies vomiting, shortness of breath or diaphoresis with the pain. The patient states her last cardiac catheterization occurred in 2011 when she was told she had a "65% blockage." The patient states she found herself hypertensive with a BP of 181/112. Patient states she was taken off lisinopril and started on losartan approximately 2 weeks ago In the emergency room initial cardiac enzyme is negative troponin is 0.010. We are going to admit the patient we will put the patient on chest pain pathway we also do a [facility] Course: 03/04: Awaiting completion of stress test. NPO midnight. Home medications restarted...list obtained [facility]. 03/05: No stress test capability on weekend. NPO midnight. Stress tomorrow AM, possible d/c if normal. Assessment and Plan: # ACS (acute coronary syndrome) Current Visit: Yes Status: Acute Plan to address problem: Admit the patient to the medical telemetry. Aspirin 81 mg p.o. daily. Lipitor 20 mg p.o. daily. Imdur 30 mg p.o. daily, metoprolol 25 mg p.o. twice daily. Losartan 100 mg p.o. daily nitroglycerin as needed. Serial cardiac enzymes. Lexiscan. Consult cardiology if needed # hypertensive urgency Current Visit: Yes Status: Acute Plan to address problem: Hydralazine 10 mg IV every 6 hours as needed. We continue the home medication Metoprolol 25 mg p.o. twice daily, losartan 100 mg p.o. daily #CAD - follows with Dr. Ramos, [facility] - on asa, imdur, lipitor, metoprolol - was told she has a 65% blockage in one vessel from a cath several years ago. - NM stress as above. # Diabetes Current Visit: Yes Status: Acute Plan to address problem: Accu-Chek every 6 hours with Humalog moderate dose coverage. Diabetic education. Recheck BMP in the morning Hold home metformin # Hyperlipidemia Current Visit: Yes Status: Acute Plan to address problem: Lipitor 20 mg p.o. daily. We will recheck the lipid panel in the morning #Morbid Obesity - BMI 62.3 - Counseled patient on the importance of weight loss, incorporating exercise, and dietary changes (lean meats, fresh fruits and vegetables, and water intake). Patient expresses understanding. - Time: +15 min #Advance care planning Disease education conducted, care plan discussed, diagnoses discussed, prognosis discussed, patient is full code, patient acknowledges understanding and agree with care plan, discussed about patient clinical course and answered all questions to satisfaction. +30 minutes. +30 minutes. Total Time Spent with Patient (Minutes): 45 History Interval history: No acute complaints Hospitalist Physical - Physical exam Narrative exam: Physical Exam: VITAL SIGNS: Reviewed. GENERAL: The patient appears normally developed, Vital signs as documented. HEAD: No signs of head trauma. EYES: Pupils are equal. Extraocular motions intact. EARS: Hearing grossly intact. MOUTH: Oropharynx is normal. NECK: No adenopathy, no JVD. CHEST: Chest with clear breath sounds bilaterally. No wheezes, rales, or rhonchi. CARDIAC: Regular rate and rhythm. S1 and S2, without murmurs, gallops, or rubs. VASCULAR: No Edema. Peripheral pulses normal and equal in all extremities. ABDOMEN: Soft, non tender and non distended. No rebound or guarding, and no masses palpated. Bowel Sounds normal. MUSCULOSKELETAL: Good range of motion of all major joints. Extremities without clubbing, cyanosis or edema. NEUROLOGIC EXAM: Alert and oriented x 4. no focal sensory or strength deficits. PSYCHIATRIC: Mood normal. SKIN: detail exam as documented in skin assessment - Constitutional Vitals: Temp Pulse Resp BP Pulse Ox 98.0 F 65 18 122/76 98 03/05/22 09:15 03/05/22 09:15 03/05/22 09:15 03/05/22 09:15 03/05/22 09:30 General appearance: Present: no acute distress, well-nourished HEART Score - HEART Score EKG: Non-specific Age: > 65 Risk factors: > 3 risk factors or hx of atherosclerotic disease Troponin: Troponin T < 0.010 ng/mL (0.00-0.029) 03/04/22 05:57 Troponin: < normal limit Results - Labs CBC & Chem 7: 03/04/22 05:57 03/04/22 05:57 Labs: Laboratory Last Values WBC 4.3 K/mm3 (4.5-11.0) L 03/04/22 05:57 RBC 3.83 M/mm3 (3.65-5.03) 03/04/22 05:57 Hgb 11.8 gm/dl (10.1-14.3) 03/04/22 05:57 Hct 35.7 % (30.3-42.9) 03/04/22 05:57 MCV 93 fl (79-97) 03/04/22 05:57 MCH 31 pg (28-32) 03/04/22 05:57 MCHC 33 % (30-34) 03/04/22 05:57 RDW 14.6 % (13.2-15.2) 03/04/22 05:57 Plt Count 186 K/mm3 (140-440) 03/04/22 05:57 Lymph % (Auto) 51.1 % (13.4-35.0) H 03/03/22 21:32 Bath % (Auto) 7.4 % (0.0-7.3) H 03/03/22 21:32 Eos % (Auto) 4.5 % (0.0-4.3) H 03/03/22 21:32 Baso % (Auto) 0.8 % (0.0-1.8) 03/03/22 21:32 Lymph # (Auto) 2.9 K/mm3 (1.2-5.4) 03/03/22 21:32 Bath # (Auto) 0.4 K/mm3 (0.0-0.8) 03/03/22 21:32 Eos # (Auto) 0.3 K/mm3 (0.0-0.4) 03/03/22 21:32 Baso # (Auto) 0.0 K/mm3 (0.0-0.1) 03/03/22 21:32 Add Manual Diff Complete 03/04/22 05:57 Total Counted 100 03/04/22 05:57 Seg Neutrophils % Senior Analyst Programmer 03/04/22 05:57 Seg Neuts % (Manual) 41.0 % (40.0-70.0) 03/04/22 05:57 Band Neutrophils % 0 % 03/04/22 05:57 Lymphocytes % (Manual) 45.0 % (13.4-35.0) H 03/04/22 05:57 Reactive Lymphs % (Man) 0 % 03/04/22 05:57 Monocytes % (Manual) 10.0 % (0.0-7.3) H 03/04/22 05:57 Eosinophils % (Manual) 4.0 % (0.0-4.3) 03/04/22 05:57 Basophils % (Manual) 0 % (0.0-1.8) 03/04/22 05:57 Metamyelocytes % 0 % 03/04/22 05:57 Myelocytes % 0 % 03/04/22 05:57 Promyelocytes % 0 % 03/04/22 05:57 Blast Cells % 0 % 03/04/22 05:57 Nucleated RBC % Not Reportable 03/04/22 05:57 Seg Neutrophils # 2.1 K/mm3 (1.8-7.7) 03/03/22 21:32 Seg Neutrophils # Man 1.8 K/mm3 (1.8-7.7) 03/04/22 05:57 Band Neutrophils # 0.0 K/mm3 03/04/22 05:57 Lymphocytes # (Manual) 1.9 K/mm3 (1.2-5.4) 03/04/22 05:57 Abs React Lymphs (Man) 0.0 K/mm3 03/04/22 05:57 Monocytes # (Manual) 0.4 K/mm3 (0.0-0.8) 03/04/22 05:57 Eosinophils # (Manual) 0.2 K/mm3 (0.0-0.4) 03/04/22 05:57 Basophils # (Manual) 0.0 K/mm3 (0.0-0.1) 03/04/22 05:57 Metamyelocytes # 0.0 K/mm3 03/04/22 05:57 Myelocytes # 0.0 K/mm3 03/04/22 05:57 Promyelocytes # 0.0 K/mm3 03/04/22 05:57 Blast Cells # 0.0 K/mm3 03/04/22 05:57 WBC Morphology Not Reportable 03/04/22 05:57 Hypersegmented Neuts Not Reportable 03/04/22 05:57 Hyposegmented Neuts Not Reportable 03/04/22 05:57 Hypogranular Neuts Not Reportable 03/04/22 05:57 Smudge Cells Not Reportable 03/04/22 05:57 Toxic Granulation Not Reportable 03/04/22 05:57 Toxic Vacuolation Not Reportable 03/04/22 05:57 Dohle Bodies Not Reportable 03/04/22 05:57 Pelger-Huet Anomaly Not Reportable 03/04/22 05:57 Jose E Rods Not Reportable 03/04/22 05:57 Platelet Estimate Consistent w auto 03/04/22 05:57 Clumped Platelets Not Reportable 03/04/22 05:57 Plt Clumps, EDTA Not Reportable 03/04/22 05:57 Large Platelets Not Reportable 03/04/22 05:57 Giant Platelets Not Reportable 03/04/22 05:57 Platelet Satelliting Not Reportable 03/04/22 05:57 Plt Morphology Comment Not Reportable 03/04/22 05:57 RBC Morphology Normal 03/04/22 05:57 Dimorphic RBCs Not Reportable 03/04/22 05:57 Polychromasia Not Reportable 03/04/22 05:57 Hypochromasia Not Reportable 03/04/22 05:57 Poikilocytosis Not Reportable 03/04/22 05:57 Anisocytosis Not Reportable 03/04/22 05:57 Microcytosis Not Reportable 03/04/22 05:57 Macrocytosis Not Reportable 03/04/22 05:57 Spherocytes Not Reportable 03/04/22 05:57 Pappenheimer Bodies Not Reportable 03/04/22 05:57 Sickle Cells Not Reportable 03/04/22 05:57 Target Cells Not Reportable 03/04/22 05:57 Tear Drop Cells Not Reportable 03/04/22 05:57 Ovalocytes Not Reportable 03/04/22 05:57 Helmet Cells Not Reportable 03/04/22 05:57 [place] Bodies Not Reportable 03/04/22 05:57 Molina Rings Not Reportable 03/04/22 05:57 Cristopher Cells Not Reportable 03/04/22 05:57 Bite Cells Not Reportable 03/04/22 05:57 Crenated Cell Not Reportable 03/04/22 05:57 Elliptocytes Not Reportable 03/04/22 05:57 Acanthocytes (Spur) Not Reportable 03/04/22 05:57 Rouleaux Not Reportable 03/04/22 05:57 Hemoglobin C Crystals Not Reportable 03/04/22 05:57 Schistocytes Not Reportable 03/04/22 05:57 Malaria parasites Not Reportable 03/04/22 05:57 Dougie Bodies Not Reportable 03/04/22 05:57 Hem Pathologist Commnt No 03/04/22 05:57 Sodium 139 mmol/L (137-145) 03/04/22 05:57 Potassium 4.2 mmol/L (3.6-5.0) 03/04/22 05:57 Chloride 105.9 mmol/L (98-107) 03/04/22 05:57 Carbon Dioxide 26 mmol/L (22-30) 03/04/22 05:57 Anion Gap 11 mmol/L 03/04/22 05:57 BUN 11 mg/dL (7-17) 03/04/22 05:57 Creatinine 0.8 mg/dL (0.6-1.2) 03/04/22 05:57 Estimated GFR > 60 ml/min 03/04/22 05:57 BUN/Creatinine Ratio 14 % 03/04/22 05:57 Glucose 106 mg/dL (65-100) H 03/04/22 05:57 POC Glucose 89 mg/dL (70-105) 03/05/22 05:50 Calcium 8.9 mg/dL (8.4-10.2) 03/04/22 05:57 Total Bilirubin 0.60 mg/dL (0.1-1.2) 03/03/22 21:32 AST 16 units/L (5-40) 03/03/22 21:32 ALT 13 units/L (7-56) 03/03/22 21:32 Alkaline Phosphatase 96 units/L (35-129) 03/03/22 21:32 Troponin T < 0.010 ng/mL (0.00-0.029) 03/04/22 05:57 Total Protein 6.7 g/dL (6.3-8.2) 03/03/22 21:32 Albumin 4.2 g/dL (3.9-5) 03/03/22 21:32 Albumin/Globulin Ratio 1.7 % 03/03/22 21:32 Gee/IV: Voiding Method Toilet Active Medications - Current Medications Current Medications: Generic Name Dose Route Start Last Admin Trade Name Freq PRN Reason Stop Dose Admin Acetaminophen 650 mg 03/04/22 01:50 Acetaminophen 325 Mg Tab PO Q6H PRN Pain, Mild (1-3) Aspirin 81 mg 03/05/22 10:00 03/05/22 09:17 Aspirin Ec 81 Mg Tab PO 81 mg QDAY DONAVON Administration Atorvastatin Calcium 20 mg 03/04/22 22:00 03/04/22 21:26 Atorvastatin 40 Mg Tab PO 20 mg QHS DONAVON Administration Dextrose 50 ml 03/04/22 01:50 Dextrose 50% In Water (25gm) 50 Ml Syringe IV Q30MIN PRN Hypoglycemia Protocol Estradiol 1 mg 03/05/22 10:00 03/05/22 09:39 Estradiol 1 Mg Tab PO 1 mg QDAY DONAVON Administration Heparin Sodium (Porcine) 5,000 unit 03/04/22 10:00 03/05/22 09:18 Heparin 5,000 Unit/1 Ml Vial SUB-Q 5,000 unit Q12HR DONAVON Administration Sodium Chloride 1,000 mls @ 100 mls/hr 03/04/22 02:00 03/05/22 02:06 Nacl 0.9% 1000 Ml IV 100 mls/hr DIRECT DONAVON Administration Insulin Human Lispro 0 unit 03/04/22 06:00 03/05/22 00:34 Insulin Lispro 100 Unit/Ml SUB-Q Not Given Q6HR DONAVON Protocol Isosorbide Mononitrate 30 mg 03/05/22 10:00 03/05/22 09:17 Isosorbide Mononitrate Er 30 Mg Tab PO 30 mg QDAY DONAVON Administration Losartan Potassium 100 mg 03/05/22 10:00 03/05/22 09:17 Losartan 50 Mg Tab PO 100 mg QDAY DONAVON Administration Metoprolol Tartrate 25 mg 03/04/22 22:00 03/05/22 09:17 Metoprolol Tartrate 25 Mg Tab PO 25 mg BID DONAVON Administration Montelukast Sodium 10 mg 03/04/22 22:00 03/04/22 23:28 Montelukast 10 Mg Tab PO 10 mg QHS DONAVON Administration Morphine Sulfate 2 mg 03/04/22 01:50 Morphine 4 Mg/1 Ml Inj IV Q5MIN PRN Chest Pain unrelieved by NTG Nitroglycerin 0.4 mg 03/04/22 01:50 Nitroglycerin 0.4 Mg Tab Subl SL Q5M PRN Chest Pain Pantoprazole Sodium 40 mg 03/04/22 10:00 03/05/22 09:17 Pantoprazole 40 Mg Tab PO 40 mg QDAY DONAVON Administration Sodium Chloride 10 ml 03/04/22 01:50 Sodium Chloride 0.9% 10 Ml Flush Syringe IV PRN PRN LINE FLUSH Tramadol HCl 50 mg 03/04/22 01:50 Tramadol 50 Mg Tab PO Q6H PRN Pain, Moderate (4-6)
[2022-03-05] MEDS ORDERED: ASPIRIN EC 325 MG TAB PO SCH (10:00)
--- NOTE | 2022-03-05 15:13 | Electrocardiograph Report ---
[facility] Test Date: 2022-03-03 Test Time: 20:23:06 Pat Name: BRENNA WATTS Department: Room: A487 1 Gender: F Community Action Worker: MARLON : 1950 Requested By: DANIEL BROUSSARD Order Number: [id number] Reading MD: Valentina Marks Measurements Intervals [place] Rate: 78 P: 76 MS: 139 QRS: 63 QRSD: 75 T: 68 QT: 385 QTc: 439 Interpretive Statements Sinus rhythm No previous ECG available for comparison Electronically Signed On 03-05-2022 15:13:05 EDT by Valentina Marks
--- NOTE | 2022-03-05 15:22 | Electrocardiograph Report ---
[facility] Test Date: 2022-03-05 Test Time: 07:18:36 Pat Name: BRENNA WATTS Department: Room: A487 1 Gender: F Mental Health Technician: EARL : 1950 Requested By: CLARA MARINELLI Order Number: [id number] Reading MD: Valentina Marks Measurements Intervals [place] Rate: 59 P: 51 WY: 156 QRS: -2 QRSD: 82 T: QT: 409 QTc: 405 Interpretive Statements Sinus rhythm Nonspecific T abnrm, anterolateral leads Compared to ECG 03/03/2022 20:23:06 No significant changes Electronically Signed On 03-05-2022 15:22:07 EDT by Valentina Marks
--- NOTE | 2022-03-05 15:23 | Electrocardiograph Report ---
[facility] Test Date: 2022-03-05 Test Time: 10:12:20 Pat Name: BRENNA WATTS Department: Room: A487 1 Gender: F Recovery Rn: EARL : 1950 Requested By: CLARA MARINELLI Order Number: [id number] Reading MD: Valentina Marks Measurements Intervals [place] Rate: 63 P: 60 WY: 158 QRS: -15 QRSD: 86 T: 87 QT: 409 QTc: 418 Interpretive Statements Sinus rhythm Nonspecific T abnrm, anterolateral leads Compared to ECG 03/05/2022 07:18:36 No significant changes Electronically Signed On 03-05-2022 15:23:11 EDT by Valentina Marks
[2022-03-05] MEDS: MONTELUKAST 10 MG TAB PO SCH (23:03)
[2022-03-06] MEDS: INSULIN LISPRO 100 UNIT/ML SUB-Q SCH (02:50)
[2022-03-06] MEDS ORDERED: REGADENOSON 0.4 MG/5 ML INJ IV ONE (06:52)
[2022-03-06] MEDS: LOSARTAN 50 MG TAB PO SCH (11:05)
[2022-03-06] MEDS: ASPIRIN EC 81 MG TAB PO SCH (11:05)
[2022-03-06] MEDS: METOPROLOL TARTRATE 25 MG TAB PO SCH (11:06)
[2022-03-06] MEDS: PANTOPRAZOLE 40 MG TAB PO SCH (11:06)
[2022-03-06] MEDS: HEPARIN 5,000 UNIT/1 ML VIAL SUB-Q SCH (11:07)
[2022-03-06] MEDS: ESTRADIOL 1 MG TAB PO SCH (11:07)
[2022-03-06 11:10] VITALS: BP 172/83
--- NOTE | 2022-03-06 12:37 | Discharge Summary ---
Providers - Providers Date of Admission: 03/04/22 01:50 Date of discharge: 03/06/22 Attending physician: LAURA LOPEZ MD 03/04/22 Consult to Cardiac Rehabilitation [CONS] Routine Reason For Exam: Phase I 03/04/22 01:50 Consult to Dietitian/Nutrition [CONS] Routine Physician Instructions: Reason For Exam: Reason for Consult: Diet education Primary care physician: CHRISTIAN RODRIGUEZ Hospitalization Reason for admission: chest pain Condition: Fair Hospital course: History of Present Illness: 72-year-old female with history of hypertension, diabetes, hyperlipidemia was brought to the emergency room because of chest pain. Patient states she was at rest this evening at 1700 when she developed dizziness and substernal chest pain described as constant stabbing pain. Patient admits to nausea but denies vomiting, shortness of breath or diaphoresis with the pain. The patient states her last cardiac catheterization occurred in 2011 when she was told she had a "65% blockage." The patient states she found herself hypertensive with a BP of 181/112. Patient states she was taken off lisinopril and started on losartan approximately 2 weeks ago In the emergency room initial cardiac enzyme is negative troponin is 0.010. We are going to admit the patient we will put the patient on chest pain pathway we also do a [facility] Course: 03/04: Awaiting completion of stress test. NPO midnight. Home medications restarted...list [facility]. 03/05: No stress test capability on weekend. NPO midnight. Stress tomorrow AM, possible d/c if normal. 03/06: Discharge pending normal stress test. patient advised to follow up with OP primary care physician. She was also advised to remain complaint on medication. No additional medications on discharge required. Assessment and Plan: # ACS (acute coronary syndrome) Current Visit: Yes Status: Acute Plan to address problem: Admit the patient to the medical telemetry. Aspirin 81 mg p.o. daily. Lipitor 20 mg p.o. daily. Imdur 30 mg p.o. daily, metoprolol 25 mg p.o. twice daily. Losartan 100 mg p.o. daily nitroglycerin as needed. Serial cardiac enzymes. Lexiscan. Consult cardiology if needed # hypertensive urgency Current Visit: Yes Status: Acute Plan to address problem: Hydralazine 10 mg IV every 6 hours as needed. We continue the home medication Metoprolol 25 mg p.o. twice daily, losartan 100 mg p.o. daily #CAD - follows with Dr. Ramos, [place] [facility] - on asa, imdur, lipitor, metoprolol - was told she has a 65% blockage in one vessel from a cath several years ago. - NM stress as above. # Diabetes Current Visit: Yes Status: Acute Plan to address problem: Accu-Chek every 6 hours with Humalog moderate dose coverage. Diabetic education. Recheck BMP in the morning Hold home metformin # Hyperlipidemia Current Visit: Yes Status: Acute Plan to address problem: Lipitor 20 mg p.o. daily. We will recheck the lipid panel in the morning #Morbid Obesity - BMI 62.3 - Counseled patient on the importance of weight loss, incorporating exercise, and dietary changes (lean meats, fresh fruits and vegetables, and water intake). Patient expresses understanding. - Time: +15 min #Advance care planning Disease education conducted, care plan discussed, diagnoses discussed, prognosis discussed, patient is full code, patient acknowledges understanding and agree with care plan, discussed about patient clinical course and answered all questions to satisfaction. +30 minutes. +30 minutes. Disposition: HOME / SELF CARE / HOMELESS Final Discharge Diagnosis (Prints w/discharge instructions): acute coronary syndrome, essential hypertension, CAD Time spent for discharge: 35 Core Measure Documentation - Palliative Care Palliative Care/ Comfort Measures: Not Applicable - Core Measures Any of the following diagnoses?: none Exam - Physical Exam Narrative exam: Physical Exam: VITAL SIGNS: Reviewed. GENERAL: The patient appears normally developed, Vital signs as documented. HEAD: No signs of head trauma. EYES: Pupils are equal. Extraocular motions intact. EARS: Hearing grossly intact. MOUTH: Oropharynx is normal. NECK: No adenopathy, no JVD. CHEST: Chest with clear breath sounds bilaterally. No wheezes, rales, or rhonchi. CARDIAC: Regular rate and rhythm. S1 and S2, without murmurs, gallops, or rubs. VASCULAR: No Edema. Peripheral pulses normal and equal in all extremities. ABDOMEN: Soft, non tender and non distended. No rebound or guarding, and no masses palpated. Bowel Sounds normal. MUSCULOSKELETAL: Good range of motion of all major joints. Extremities without clubbing, cyanosis or edema. NEUROLOGIC EXAM: Alert and oriented x 4. no focal sensory or strength deficits. PSYCHIATRIC: Mood normal. SKIN: detail exam as documented in skin assessment - Constitutional Vitals: Temp Pulse Resp BP Pulse Ox 97.9 F 69 18 172/83 98 03/06/22 04:09 03/06/22 11:07 03/06/22 04:09 03/06/22 11:07 03/06/22 04:09 Plan Follow up with: CHRISTIAN RODRIGUEZ MD [Primary Care Provider] - 7 Days
--- NOTE | 2022-03-06 12:39 | Nuclear Medicine Report ---
APPROVED REPORT Exam: Nuclear Stress Test Indication: Chest pain Patient Location: [facility]TELEMETRY Room #: A487 Ht: 5 ft 6 in Wt: 175 lbs BSA: 1.89 m2 HR: 61 bpmBP: 172/100 mmHgBMI: 28.24 Rhythm: Sinus Rhythm Stress Test Details Stress Test: Pharmacologic stress testing performed using 0.4 mg of regadenoson per 5 mL given IV over 10 seconds. Reason for pharmacologic stress test: physical limitation. HR Resting HR: 62 bpm Max HR Achieved: 107 bpm Max Heart Rate (APMHR): 147 bpm Target HR (85% APMHR): 124 bpm % of APMHR: 72 Recovery HR: 76 bpm HR response to stress: Normal HR response to stress BP Resting BP: 168/89 mmHg Max BP: 179/100 mmHg Recovery BP: 172/93 mmHg BP response to stress: Normal blood pressure response to stress. ECG Resting ECG: Sinus Rhythm Stress ECG: Sinus Tachycardia ST Change: Nondiagnostic resting ST and T wave abnormalities Arrhythmia: None Recovery ECG: Sinus Rhythm Recovery ST Change: Nondiagnostic resting ST and T wave abnormalities Recovery Arrhythmia: None Clinical Reason for Termination: Completed protocol Stress Symptoms: None Stress ECG Conclusion No chest pain and no ST changes of ischemia with pharmacologic stress. Myocardial perfusion images are pending. NM EXAM: Myocardial Perfusion REST/STRESS Imaging Protocol: Rest Tc-99m/Stress Tc-99m 1 day Resting Data Rest SPECT myocardial perfusion imaging was performed in supine position 45 minutes following the intravenous injection of 10 mCi of Tc-99m Myoview. Time of rest injection: 0830 Pharmacologic Stress Pharmacologic stress test was performed by injecting Regadenoson 0.4 mg IV push followed by the intravenous injection of 28 mCi of Tc-99m Myoview. Time of stress injection: 0955 Gated Stress SPECT was performed 30 minutes after stress injection. The images were gated to evaluate regional wall motion and calculate left ventricular ejection fraction. Study Quality Study: excellent Lung Uptake: Normal Study Data TID = 1.28. Perfusion Wall Motion The rest and stress images show normal left ventricular function, ejection fraction 70%. Nuclear Conclusion ECG Findings: non-diagnostic Clinical Findings: negative for ischemia Nuclear Findings: negative for ischemia Left Ventricular Function: normal Risk Study: low Normal rest and stress myocardial perfusion study, normal left ventricular systolic function, ejection fraction 70%. Negative study. Conclusion No chest pain and no ST changes of ischemia with pharmacologic stress. Myocardial perfusion images are pending.
== END 2022-03-06 14:10 | disposition home or self-care (01) | DRG 305 ==
LOC: ED 20:16 → 4A 03-04 01:50
PROVIDERS: ADMIT Hospitalist; ATTEND Internal Medicine
DX: I16.0 Hypertensive urgency (principal); I24.9 Acute ischemic heart disease, unspecified; Z68.44 Body mass index [BMI] 60.0-69.9, adult; I10 Essential (primary) hypertension; E78.00 Pure hypercholesterolemia, unspecified; E11.9 Type 2 diabetes mellitus without complications; E78.5 Hyperlipidemia, unspecified; Z82.49 Family history of ischemic heart disease and other diseases of the circulatory system; E66.01 Morbid (severe) obesity due to excess calories; I25.10 Atherosclerotic heart disease of native coronary artery without angina pectoris
CPT/HCPCS: 36415; 71046; 78452; 80048; 80053; 82962; 84484; 85007; 85025; 93005; 93017; G0378; A9502; J1644; J2785; J7030